=== PATIENT | female | born 1995 | race Caucasian/White ===

== ENCOUNTER 2020-06-24 12:55 | Emergency (ER) | payer SELFPAY ==
[2020-06-24 12:58] VITALS: BP 149/91; PULSE 86; RESP 18; TEMP 36.8; O2SAT 100
[2020-06-24 13:30] LABS: Basophils Percent Auto 0.6 % (0.2-1.2); Eosinophils Absolute Auto 0.1 K/mm3 (0-0.3); Eosinophils Percent Auto 0.7 % (0-4.4); Hematocrit 41.1 % (37.0-47.0); Hemoglobin 14.1 g/dL (12.0-15.0); Immature Granulocyte Absolute 0.02 K/mm3 (0.00-0.031); Immature Granulocyte Percent A 0.3 % (0-0.5); Lymphocytes Absolute Auto 1.57 K/mm3 (0.9-3.2); Lymphocytes Percent Auto 22.4 % (18.3-44.2); Mean Corpuscular HGB Conc 34.3 g/dl (32-36); Mean Corpuscular Hemoglobin 29.1 pg (26-34); Mean Corpuscular Volume 84.7 fl (80-100); Mean Platelet Volume 10.7 fl (7.4-10.4); Monocytes Absolute Auto 0.5 K/mm3 (0.1-0.6); Monocytes Percent Auto 7.7 % (2.6-8.5); Neutrophils Absolute Auto 4.8 K/mm3 (1.3-6.7); Neutrophils Percent Auto 68.3 % (45.5-73.1); Platelet Count Result 269 k/mm3 (150-375); Red Blood Count 4.85 M/mm3 (4.2-5.4); Red Cell Distribution Width 12.1 % (11.5-14.5)
--- NOTE | 2020-06-24 13:31 | ED.PSYCH ---
HPI - Psych General Chief Complaint: Psychiatric Symptoms Stated Complaint: SI Time Seen by Provider: 06/24/20 13:03 History of Present Illness HPI Narrative: Patient is a 24-year-old female who presents ER with suicidal ideation. She has a history of depression and has not been taking her medications for last 2 months. No new stressors. Has had decreased p.o. intake and sleeping last. When she realized that she had a strong urge to try to take her own life she contacted her mom who then cannot talk to the patient's psychiatrist Dr. Jolly. He then recommend the patient come to the ER for further treatment evaluation. Patient is having no other additional symptoms. Cannot identify any new stressors. Has not been hospitalized previously for mental illness. Related Data Allergies Allergy/AdvReac Type Severity Reaction Status Date / Time No Known Allergies Allergy Unverified 03/18/20 14:43 Review of Systems Review of Systems: All systems reviewed & are unremarkable except as noted in HPI and below Constitutional: Constitutional: Denies chills and Denies fever(s) Cardiovascular: Cardiovascular: Denies chest pain and Denies radiating jaw, neck or arm pain Respiratory: Respiratory: Denies cough, Denies dyspnea and Denies wheezing Gastrointestinal: Gastrointestinal: Denies abdominal pain, Denies nausea and Denies vomiting Psychiatric: Psychiatric: Reports anxiety, Reports depression, Denies homicidal ideation and Reports suicidal ideation PMFSH Past Medical History Medical History (Updated 06/24/20 @ 21:40 by Arpan Meade MD) Depression Social History Social History (Updated 03/18/20 @ 14:45 by Venus Keith) Social History: Single Smoking status: Never smoker Second hand tobacco smoke exposure: No Alcohol intake: current Drinks per week: 3 Substance use: current Substance use type: marijuana Last use: Pt smokes marijuana every night Gender identity (if verbalized by the patient): Female Exam Narrative: Exam Narrative: GENERAL: Well-appearing, well-nourished, and in no acute distress. HEAD: Normocephalic, atraumatic. CHEST: Clear to auscultation. No respiratory distress. HEART: Regular rate and rhythm. Normal peripheral pulses. ABDOMEN: Soft, nontender, nondistended. EXTREMITIES: Normal range of motion. No edema. SKIN: Warm, dry, no rash. NEURO: Alert and oriented x3. PSYCH: Depressed mood with flat affect. Endorses thoughts of self-harm. Does not appear to be responding to internal stimuli. Course Reevaluation(s) Reevaluation #1: Patient medically cleared for psychiatric evaluation. Date: 06/24/20 Time: 15:52 Reevaluation #2: Has been evaluated by crisis. Paperwork has been faxed to different facilities. Awaiting placement. Will transfer care to Dr. Motta. Date: 06/24/20 Time: 21:39 Reevaluation #3: Accepted by Dr. Hester at [facility]. Date: 06/25/20 Time: 17:44 Vital Signs Vital signs: Vital Signs Temperature 98.3 F 06/24/20 12:58 Pulse Rate 86 06/24/20 12:58 Respiratory Rate 18 06/24/20 12:58 Blood Pressure 149/91 H 06/24/20 12:58 Pulse Oximetry 100 06/24/20 12:58 Temperature 98.3 F 06/24/20 12:58 Pulse Rate 75 06/25/20 05:58 Respiratory Rate 15 06/25/20 05:58 Blood Pressure 132/72 06/25/20 05:58 Pulse Oximetry 100 06/25/20 05:58 MDM - Psych Lab Data Result diagrams: 06/24/20 13:24 06/24/20 13:24 Labs: Lab Results 06/24/20 06/24/20 06/24/20 Range/Units 13:24 13:24 13:24 WBC 7.0 (4.5-10.0) K/mm3 RBC 4.85 (4.2-5.4) M/mm3 Hgb 14.1 (12.0-15.0) g/dL Hct 41.1 (37.0-47.0) % MCV 84.7 (80-100) fl MCH 29.1 (26-34) pg MCHC 34.3 (32-36) g/dl RDW 12.1 (11.5-14.5) % Plt Count 269 (150-375) k/mm3 MPV 10.7 H (7.4-10.4) fl Immature Gran % (Auto) 0.3 (0-0.5) % Neut % (Auto) 68.3 (45.5-73.1) % Lymph % (Auto) 22.4 (18.3-44.2) % [place]
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
[2020-06-24 13:43] LABS: Alanine Aminotransferase 19 U/L (4-35); Alkaline Phosphatase 53 U/L (38-126); Anion Gap 7 mmol/L (8-16); Aspartate Amino Transferase 27 U/L (14-36); Bilirubin,Total 0.9 mg/dL (0.2-1.3); Blood Urea Nitrogen 9 mg/dL (7-17); Calcium 10.1 mg/dL (8.4-10.2); Carbon Dioxide 29 mmol/L (22-30); Chloride 103 mmol/L (98-107); Estimated CRCL calculation 108 ml/min; Estimated Glomerular Filt Rate > 60; Glucose 108 mg/dL (65-105); Potassium 3.8 mmol/L (3.4-5.0); Sodium 139 mmol/L (137-145)
[2020-06-24 13:54] LABS: Ethanol < 10 mg/dL (<10)
[2020-06-24 14:41] LABS: Add Urine Microscopic? YES; Appearance Urine Clear (Clear); Bacteria Urine Trace /hpf; Bilirubin Urine Negative (Negative); Blood Urine Negative (Negative); Color Urine Yellow (Yellow); Glucose Urine UA Negative (Negative); Ketones Urine Trace mg/dL (Negative); Leukocyte Esterase Ur Negative LEU/UL (Negative); Mucus Urine Rare /lpf; Nitrate Urine Negative (Negative); Protein Urine Negative (Negative); Specific Grav Ur 1.016 (1.001-1.035); Squamous Epithelial Cell Urine Rare /hpf (Few); Urobilinogen Urine Negative mg/dL (<2.0); WBC Urine 0-3 /hpf
[2020-06-24 14:59] LABS: Amphetamine Screen Urine Negative (Negative); Barbiturate Screen Urine Negative (Negative); Benzodiazepines Screen Urine Negative (Negative); Cannabinoid Screen Urine Positive (Negative); Cocaine Screen Urine Negative (Negative); Methadone Screen Urine Negative (Negative); Opiate Screen Urine Negative (Negative); Phencyclidine Screen Urine Negative (Negative)
--- NOTE | 2020-06-24 17:39 | PC.NURSE ---
Crisis at bedside to speak to patient
[2020-06-25 05:58] VITALS: BP 132/72; PULSE 75; RESP 15; O2SAT 100
--- NOTE | 2020-06-25 07:57 | PC.NURSE ---
Breakfast tray ordered at this time.
--- NOTE | 2020-06-25 10:04 | PC.NURSE ---
patient's mother reports, This is taking too long, what is even being done right now. I am about ready to throw in the towel and take her home, we are both going nuts in that little room. This has taken too many hours, I don't want to wait any longer.
--- NOTE | 2020-06-25 10:12 | PC.NURSE ---
Crisis notified of mother's wishes to leave hospital due to the wait time for COVID test result being too long. patient has been accepted for inpatient treatment, waiting for COVID result at this time to send patient EMS.
--- NOTE | 2020-06-25 10:23 | PC.NURSE ---
Crisis contacted, will be out to reevaluation patient at this time.
--- NOTE | 2020-06-25 11:56 | PC.NURSE ---
Crisis evaluated patient. Pt still agrees with plan for transfer. Pts mom has left the dept at this time.
--- NOTE | 2020-06-25 12:46 | PC.NURSE ---
[employer] videotape sales representative called to check on patient. She states she will be calling their psychiatrist now to see if patient is accepted and call us back.
--- NOTE | 2020-06-25 12:48 | PC.NURSE ---
Pt requesting a shower. RN told her that we will try to make sure she gets one today when someone can assist her.
--- NOTE | 2020-06-25 14:00 | PC.NURSE ---
Pt showered assisted by heat transfer technician and escorted by security.
--- NOTE | 2020-06-25 14:38 | PC.NURSE ---
Left message with Marley at Crisis about faxing a petition to [employer]
--- NOTE | 2020-06-25 15:58 | PC.NURSE ---
Covid screening and voluntary petition faxed to [employer]
--- NOTE | 2020-06-25 17:14 | PC.NURSE ---
Report given to Chitra at [facility]. She will call back if they can take patient with COVID pending status
--- NOTE | 2020-06-25 17:46 | PC.NURSE ---
Pt accepted at [facility] by Dr. Hester to room 5335-A. Report given to BOUCHRA Buenrostro.
[2020-06-25 17:48] VITALS: BP 125/82; PULSE 70; RESP 16; TEMP 36.6; O2SAT 100
[2020-06-25 18:30] LABS: SARS-CoV-2 RNA PCR Negative
--- NOTE | 2020-06-25 19:18 | PC.NURSE ---
called [facility] for ETA update. ETA 45 minutes
[2020-06-25 19:59] VITALS: BP 140/79; PULSE 79; RESP 16; TEMP 36.6; O2SAT 100
== END 2020-06-25 20:00 ==
PROVIDERS: Emergency Provider Emergency Medicine; PCP Family Medicine
DX: F32.9 Major depressive disorder, single episode, unspecified (principal); R45.851 Suicidal ideations; Z20.822 Contact with and (suspected) exposure to COVID-19
CPT/HCPCS: 36415; 80053; 80307; 81001; 81025; 84443; 85025; 99285; C9803; U0003; U0005

== ENCOUNTER 2023-10-07 16:21 | Emergency (ER) | payer BC, SELFPAY ==
[2023-10-07 16:27] VITALS: BP 129/82; PULSE 98; RESP 16; TEMP 36.7; O2SAT 98
--- NOTE | 2023-10-07 17:00 | ED.HA ---
HPI - Headache General Chief Complaint: Headache Stated Complaint: Migraine x 4 days Time Seen by Provider: 10/07/23 16:48 Source: patient and RN notes reviewed Mode of arrival: ambulatory Limitations: no limitations History of Present Illness HPI Narrative: Patient presents today with a 4 day history severe global headache. Associated symptoms include photophobia, phonophobia, nausea. Denies vomiting, dizziness, lightheadedness, or any additional symptoms. She currently rates her pain 8/10 has been taking Excedrin and ibuprofen with some mild relief. Patient reports history of severe headaches, but has never been formally diagnosed with migraines. Reports that her current symptoms are consistent with previous headaches. Related Data Home Medications Medication Instructions Recorded Confirmed fluoxetine 20 mg capsule 20 mg PO DAILY 10/07/23 10/07/23 fluoxetine 40 mg capsule 40 mg PO DAILY 10/07/23 10/07/23 Allergies Allergy/AdvReac Type Severity Reaction Status Date / Time No Known Allergies Allergy Unverified 03/18/20 14:43 Review of Systems Review of Systems: CONSTITUTIONAL: Denies body aches, fever, chills, or sweats. EYES: Denies visual changes, redness, or discharge.+ photophobia ENT: Denies rhinorrhea, congestion, sore throat, or otalgia.+ phonophobia CARDIOVASCULAR: Denies chest pain, palpitations, or edema. RESPIRATORY: Denies cough or dyspnea. GASTROINTESTINAL: Denies abdominal pain, vomiting, or diarrhea.+ nausea GENITOURINARY: Denies dysuria or hematuria. SKIN: Denies rash, itching, or wounds. MUSCULOSKELETAL: Denies back pain, joint pain, or myalgia. NEUROLOGIC: Denies numbness, tingling, or weakness.+ headache PSYCH: Denies depression or anxiety. [facility] Past Medical History Medical History Depression Social History Social History Social History: Single Smoking status: Never smoker Second hand tobacco smoke exposure: No Alcohol intake: current Drinks per week: 3 Substance use: current Substance use type: marijuana Last use: Pt smokes marijuana every night Living arrangements: with family Occupation/Education: occupation Gender identity (if verbalized by the patient): Female Comments At time of signature, I have reviewed and agree with nursing past medical, surgical, social and family history unless otherwise noted. Please see nursing chart for further information. There is no relevant family history pertinent to the presenting complaint Exam Narrative: GENERAL: Well-appearing, well-nourished, and in no acute distress. HEAD: Normocephalic, atraumatic. EYES: EOMI. PERRL. No redness or drainage. Conjunctivae normal. ENT: Mucous membranes pink and moist. Nares clear. No rhinorrhea. TMs normal bilaterally. Throat normal. Uvula midline. NECK: Normal AROM. Supple. No lymphadenopathy. CHEST: No respiratory distress. Clear to auscultation. HEART: Regular rate and rhythm. No murmur appreciated. EXTREMITIES: Normal range of motion. No edema. SKIN: Warm, dry, no rash. Capillary refill normal. Normal skin turgor. NEURO: No focal deficits. Alert and oriented x3. Gait steady. PSYCH: Normal affect. No signs of depression or anxiety. Course Course Emergency Course: 1800- Patient states symptoms are slightly better after IM Toradol and Benadryl. Gave choice of discharge with oral steroids or ER transfer. Patient would like to be transferred to the ER. Level of Care: Express Care Visit Vital Signs Vital signs: Vital Signs Temperature 98.0 F 10/07/23 16:27 Pulse Rate 98 10/07/23 16:27 Respiratory Rate 16 10/07/23 16:27 Blood Pressure 129/82 10/07/23 16:27 Pulse Oximetry 98 10/07/23 16:27 Oxygen Delivery Room Air 10/07/23 16:27 Temperature 98.0 F 10/07/23 16:27 Pulse Rate 98 10/07/23 16:27 Respiratory Rat
[2023-10-07] MEDS: diphenhydrAMINE HCl INJ 50 MG/ML VIAL IM (17:05)
[2023-10-07] MEDS: KETOROLAC (*BKC) 60 MG/2 ML VIAL IM (17:07)
== END 2023-10-07 18:04 | disposition short-term general hospital (02) ==
PROVIDERS: Emergency Provider Nurse Practitioner
DX: R51.9 Headache, unspecified (principal); F32.A Depression, unspecified; F12.90 Cannabis use, unspecified, uncomplicated
CPT/HCPCS: 96372; 99214; G0463; J1200; J1885